=== PATIENT | female | born 1995 | race Caucasian/White ===

== ENCOUNTER 2019-04-04 01:43 | Emergency (ER) | payer BC ==
[2019-04-04 02:01] VITALS: RESP 17
[2019-04-04] MEDS ORDERED: SODIUM CHLORIDE 0.9% 500 ML 500 ML IV STA (02:59)
[2019-04-04] MEDS ORDERED: KETOROLAC 30 MG/ML 1 ML VIAL IVP STA (03:14)
[2019-04-04] MEDS ORDERED: ONDANSETRON 4 MG/2 ML VIAL IVP STA (03:14)
[2019-04-04] MEDS ORDERED: HYDROmorphone 0.5 MG/0.5 ML SYRINGE IVP STA (03:14)
--- NOTE | 2019-04-04 03:18 | ED ---
Abdominal Pain HPI - General Chief Complaint: Abdominal Pain Stated Complaint: Gallstones Time Seen by Provider: 04/04/19 02:49 Source: patient Mode of arrival: ambulatory Limitations: no limitations - History of Present Illness Initial Comments: 23-year-old female patient presents to the emergency department today for evaluation of upper abdominal pain. Patient states that the pain started around midnight. She is on vacation from out of town. States that before leaving for vacation she was told she had gallstones and has been having issues with i ntermittent abdominal pain for the last month or so. She describes the pain as an intense aching pain. Reports radiation through to her back. Denies any shoulder pain. Denies shortness of breath, or chest pain. Patient states that she has had nausea and vomiting tonight. States she has had some diarrhea with this. She denies any fevers or chills. States that she has had exploratory laparotomy several years ago, but no other abdominal surgeries. She denies any hematochezia, melena, hematemesis. Denies any hematuria, dysuria, urinary frequency, urinary urgency. Patient denies any recent rash, shortness breath, chest pain, numbness, tingling, dizziness, weakness, headache, visual changes, or any other complaints. - Related Data Previous Rx's Medication Instructions Recorded Ibuprofen [Motrin] 600 mg PO Q8HR PRN #30 tab 04/04/19 Ondansetron [Zofran ODT] 4 mg PO Q8HR PRN #15 tab 04/04/19 Allergies Allergy/AdvReac Type Severity Reaction Status Date / Time acetaminophen Allergy Rash/Hives Verified 04/04/19 02:01 [From Darvocet-N] cefuroxime [From Ceftin] Allergy Rash/Hives Verified 04/04/19 02:01 propoxyphene Allergy Rash/Hives Verified 04/04/19 02:01 [From Darvocet-N] Review of Systems ROS Statement: Those systems with pertinent positive or pertinent negative responses have been documented in the HPI. ROS Other: All systems not noted in ROS Statement are negative. Past Medical History Past Medical History: Syncope Additional Past Medical History / Comment(s): gestational DM History of Any Multi-Drug Resistant Organisms: None Reported Additional Past Surgical History / Comment(s): Ex lap 2006 Past Psychological History: No Psychological Hx Reported Smoking Status: Never smoker Past Alcohol Use History: Occasional Past Drug Use History: None Reported General Exam Limitations: no limitations General appearance: alert, in no apparent distress, other (This is a well- developed, well-nourished adult female patient in no acute distress. Vital signs upon presentation are temperature 98.0F, pulse 63, respirations 17, blood pressure 125/81, pulse ox 98% on room air.) Eye exam: Present: normal appearance, PERRL, EOMI. Absent: scleral icterus, conjunctival injection, periorbital swelling ENT exam: Present: normal exam, normal oropharynx, mucous membranes moist Respiratory exam: Present: normal lung sounds bilaterally. Absent: respiratory distress, wheezes, rales, rhonchi, stridor Cardiovascular Exam: Present: regular rate, normal rhythm, normal heart sounds. Absent: systolic murmur, diastolic murmur, rubs, gallop, clicks GI/Abdominal exam: Present: soft, tenderness (Midepigastric and right upper quadrant tenderness), normal bowel sounds. Absent: distended, guarding, rebound, rigid Neurological exam: Present: alert, oriented X3, CN II-XII intact Psychiatric exam: Present: normal affect, normal mood Skin exam: Present: warm, dry, intact, normal color. Absent: rash Course Vital Signs 04/04/19 01:58 Temperature 98.0 F Pulse Rate 63 Respiratory 17 Rate Blood Pressure 125/81 O2 Sat by Pulse 98 Oximetry Medical Decision Making - Medical Decision Making 23-year-old female patient presented to the emergency department today for evaluation of midepigastric right upper quadrant abdominal pain. Patient has recent diagnosis of gallstones. Physical examination did reveal some midepigast peri right upper quadrant tenderness. Labs reviewed and are unremarkable. Patient reports she did have previously elevated liver enzymes, those have returned to normal. White blood cell count is mildly elevated at 13.6. Patient is afebrile, vital signs of this is felt to be reactive to vomiting. Upon reevaluation patient is reporting resolution of symptoms. We did discuss following strict low-fat diet. She'll be given a prescription for anti- inflammatory and nausea medication. She is traveling, she is instructed to follow-up with surgeon for recheck as soon as possible. She is to maintain low threshold for return since she will be unable to follow-up for a few days. Return parameters were discussed in great detail. She verbalizes understanding and agrees with this plan. - Lab Data Result diagrams: 04/04/19 02:47 04/04/19 02:47 Lab Results 04/04/19 04/04/19 Range/Units 02:47 02:47 WBC 13.6 H (3.8-10.6) k/uL RBC 5.30 (3.80-5.40) m/uL Hgb 15.0 (11.4-16.0) gm/dL Hct 44.8 (34.0-46.0) % MCV 84.5 (80.0-100.0) fL MCH 28.3 (25.0-35.0) pg MCHC 33.5 (31.0-37.0) g/dL RDW 12.9 (11.5-15.5) % Plt Count 292 (150-450) k/uL Neutrophils % (Manual) 47 % Lymphocytes % (Manual) 43 % Monocytes % (Manual) 9 % Eosinophils % (Manual) 1 % Neutrophils # (Manual) 6.39 (1.3-7.7) k/uL Lymphocytes # (Manual) 5.85 H (1.0-4.8) k/uL Monocytes # (Manual) 1.22 H (0-1.0) k/uL Eosinophils # (Manual) 0.14 (0-0.7) k/uL Nucleated RBCs 0 (0-0) /100 WBC Manual Slide Review Performed Sodium 140 (137-145) mmol/L Potassium 3.8 (3.5-5.1) mmol/L Chloride 104 (98-107) mmol/L Carbon Dioxide 27 (22-30) mmol/L Anion Gap 9 mmol/L BUN 18 H (7-17) mg/dL Creatinine 0.64 (0.52-1.04) mg/dL Est GFR (CKD-EPI)AfAm >90 (>60 ml/min/1.73 sqM) Est GFR (CKD-EPI)NonAf >90 (>60 ml/min/1.73 sqM) Glucose 93 (74-99) mg/dL Calcium 9.6 (8.4-10.2) mg/dL Total Bilirubin 0.3 (0.2-1.3) mg/dL AST 24 (14-36) U/L ALT 31 (9-52) U/L Alkaline Phosphatase 90 (38-126) U/L Total Protein 7.3 (6.3-8.2) g/dL Albumin 4.4 (3.5-5.0) g/dL Amylase 57 (30-110) U/L Lipase 144 (23-300) U/L - Radiology Data Radiology results: report reviewed, image reviewed One view x-ray of the abdomen is obtained. Report was reviewed in its entirety. Impression by Dr. Carrasco shows no acute findings. Disposition Clinical Impression: Abdominal pain Disposition: HOME SELF-CARE Condition: Good Instructions (If sedation given, give patient instructions): Gallstones (ED), Low Fat Diet (ED), Abdominal Pain (ED) Additional Instructions: Increase fluids. Follow low-fat diet. Take medications as needed for pain and nausea control. Follow-up with your primary care physician and surgeon for recheck as soon as possible. Return to the emergency department immediately for any new, worsening, or concerning symptoms. Prescriptions: Ibuprofen [Motrin] 600 mg PO Q8HR PRN #30 tab PRN Reason: Pain Ondansetron [Zofran ODT] 4 mg PO Q8HR PRN #15 tab PRN Reason: Nausea Is patient prescribed a controlled substance at d/c from ED?: No Referrals: Nonstaff,Physician [Primary Care Provider] - 1-2 days Time of Disposition: 04:33
[2019-04-04 03:31] LABS: ALT 31 U/L (9-52); AST 24 U/L (14-36); African American GFR (CKD) >90 (>60 ml/min/1.73 sqM); Albumin 4.4 g/dL (3.5-5.0); Alkaline Phosphatase 90 U/L (38-126); Amylase 57 U/L (30-110); Anion Gap 9 mmol/L; Blood Urea Nitrogen 18 mg/dL (7-17); Calcium 9.6 mg/dL (8.4-10.2); Carbon Dioxide 27 mmol/L (22-30); Chloride 104 mmol/L (98-107); Glucose 93 mg/dL (74-99); Lipase 144 U/L (23-300); Potassium 3.8 mmol/L (3.5-5.1); Sodium 140 mmol/L (137-145); Total Bilirubin 0.3 mg/dL (0.2-1.3); Total Protein 7.3 g/dL (6.3-8.2)
[2019-04-04 03:52] LABS: HCT 44.8 % (34.0-46.0); MCH 28.3 pg (25.0-35.0); MCHC 33.5 g/dL (31.0-37.0); MCV 84.5 fL (80.0-100.0); Mean Platelet Volume 7.7; Platelet Count 292 k/uL (150-450); RDW 12.9 % (11.5-15.5); WBC 13.6 k/uL (3.8-10.6)
--- NOTE | 2019-04-04 04:04 | XR ---
EXAM: XR Abdomen, 1 View CLINICAL HISTORY: ITS.REASON XR Reason: abdominal pain TECHNIQUE: Frontal supine view of the abdomen/pelvis. COMPARISON: No relevant prior studies available. FINDINGS: Gastrointestinal tract: Unremarkable. No dilation. Bones/joints: No acute fracture. No dislocation. Levoscoliosis. IMPRESSION: No acute findings.
[2019-04-04 04:24] LABS: Eosinophils # (M) 0.14 k/uL (0-0.7); Lymphocytes # (M) 5.85 k/uL (1.0-4.8); Monocytes # (M) 1.22 k/uL (0-1.0); Neutrophils # (M) 6.39 k/uL (1.3-7.7); Neutrophils % (M) 47 %; Nucleated Red Blood Cells 0 /100 WBC (0-0); Total Cells Counted 100
[2019-04-04] MEDS ORDERED: ACET/COD 300 MG/30 MG STARTER PACK 6 TAB BTL PO STA (04:31)
[2019-04-04] MEDS ORDERED: ONDANSETRON 4 MG ODT STARTER PACK 2 TAB BTL PO STA (04:31)
[2019-04-04] MEDS ORDERED: IBUPROFEN 600 MG STARTER PACK 4 TAB BTL PO STA (04:31)
[2019-04-04 05:09] VITALS: BP 102/71; PULSE 65; TEMP 98.2
== END 2019-04-04 05:09 | disposition home or self-care (01) ==
LOC: EC 01:43
DX: R10.13 Epigastric pain (principal); R10.11 Right upper quadrant pain; R11.2 Nausea with vomiting, unspecified; R19.7 Diarrhea, unspecified; Z88.1 Allergy status to other antibiotic agents; Z88.5 Allergy status to narcotic agent; Z88.6 Allergy status to analgesic agent; Z98.890 Other specified postprocedural states
CPT/HCPCS: 36415; 80053; 82150; 83690; 85025; 74018; 99284; 96374; 96375 ×2; 96361 ×2; J2405; J1885; S0119; J1170